=== PATIENT | male | born 1955 | race Caucasian/White ===

== ENCOUNTER → 2016-12-25 | Outpatient (CLI) | payer BC ==
[~2016-12-25] MED LIST: ACET-1256 PO; CIPR-255 PO; DIPH-437 PO; FORM1NEB INH; OXYC7.5T65 PO; PHEN-775 PO; PRVHFAIN INH
== END | disposition home or self-care (01) ==
LOC: C.LABSPEC 17:14
PROVIDERS: ATTEND Urology
DX: R31.9 Hematuria, unspecified (principal)

== ENCOUNTER 2017-01-09 07:38 | Day surgery (SDC) | payer BC, OTHER ==
[2016-12-25 10:35] VITALS: BMI 27.0
--- NOTE | 2016-12-25 11:10 | PAT Medication Instructions ---
Service Date Dec 25, 2016. Current Home Medication List Acetaminophen (Tylenol), 1 TAB PO Q8 PRN for Pain Acetaminophen/Diphenhydramine (Tylenol Pm), 1 TAB PO HS Medication Instructions For Your Scheduled Surgery - Take the following medications the morning of surgery with a sip of water: Acetaminophen (Tylenol), 1 TAB PO Q8 PRN for Pain - Take the following medications as scheduled the night before surgery: Acetaminophen (Tylenol), 1 TAB PO Q8 PRN for Pain Acetaminophen/Diphenhydramine (Tylenol Pm), 1 TAB PO HS If you have any questions please call us at [phone] or [phone] or [phone]
--- NOTE | 2016-12-25 11:51 | DIAGNOSTIC IMAGING REPORT ---
CHEST PREADMISSION(PA/LAT) CLINICAL HISTORY: Preoperative chest COMPARISON STUDY: No previous studies for comparison. FINDINGS: The heart is normal in size. There is radiographic evidence of moderately severe pulmonary emphysema.[ There is no acute parenchymal consolidation. There is no failure. There are no pleural effusions. There is mild interstitial thickening at the lung bases. IMPRESSION: Pulmonary emphysema. No acute findings. Electronically signed by: Matt Mcleod M.D. 12/25/2016 11:49 AM Dictated Date/Time: 12/25/2016 11:48 AM
[2016-12-25 11:53] LABS: BASO % 0.3 %; BASO ABS # 0.02 K/uL (0-0.2); COMPLETE YES; EOS % 0.9 %; HEMATOCRIT 54.1 % (42-52); IG% 0.1 %; LYMPH % 17.9 %; LYMPH ABS # 1.37 K/uL (1.2-3.4); MEAN CELL VOLUME 95.2 fL (80-100); MEAN CORPUSCULAR HGB CONC 33.6 g/dl (32-36); MEAN PLATELET VOLUME 10.9 fL (7.4-10.4); MONO % 8.4 %; NEUT % 72.4 %; PLATELET COUNT 199 K/uL (130-400); RED BLOOD COUNT 5.68 M/uL (4.7-6.1); WHITE BLOOD COUNT 7.65 K/uL (4.8-10.8)
[2016-12-25 13:46] LABS: BUN/CREATININE RATIO 16.2 (10-20); CALCIUM 8.9 mg/dl (8.5-10.1); CREATININE 0.93 mg/dl (0.60-1.40); POTASSIUM 4.2 mmol/L (3.5-5.1)
[~2017-01-09] VITALS: Ht 190.5 cm; Wt 99.7 kg
[~2017-01-09 07:38] MED LIST changes: +ATROPINE SULFATE 0.1 MG/ML 5ML SYR IV PRN; -CIPR-255 PO; +CIPROFLOXACIN / D5W 400 MG IV SCH; +EpHEDrine SULFATE INJ 50 MG/ML AMP IV PRN; +FENTANYL CITRATE INJ 50 MCG/1 ML 2 ML VIAL ONE; +LACTATED RINGER'S 1000ML 1,000 ML IV SCH; +LIDOCAINE HCL 2% 2 ML VIAL (20MG/ML) ONE; +MIDAZOLAM HCL 1 MG/ML 2ML VIAL ONE; +ONDANSETRON INJ 2 MG/ML 2 ML VIAL IV PRN; +ONDANSETRON INJ 2 MG/ML 2 ML VIAL ONE; -OXYC7.5T65 PO; -PHEN-775 PO; +PROPOFOL IV EMULSION 10 MG/ML 20 ML VIAL IV ONE
[2017-01-09 08:05] VITALS: BP 153/85; PULSE 68; TEMP 36.4; O2SAT 91; Ht 190.5 cm; Wt 99.7 kg
--- NOTE | 2017-01-09 08:37 | History & Physical Bridge Note ---
H&P Re-Evaluation Bridge Note: I have examined the patient, reviewed the History & Physical and in the interval since the performance of the History & Physical I have noted the following changes of clinical significance: No changes noted
[2017-01-09] MEDS ORDERED: NURSING VERBAL MED ORDER ONE (09:00)
--- NOTE | 2017-01-09 09:00 | Discharge Instructions ---
Discharge Instructions Date of Service Jan 09, 2017. Admission Reason for Admission: Bladder Tumor Discharge Discharge Diagnosis / Problem: Bladder tumor s/p TURBT, TURBN, R ureteral stent Discharge Goals Goal(s): Improve function, Improve disease control, Diagnostic testing, Therapeutic intervention Activity Recommendations Activity Limitations: as noted below Lifting Limitations: no more than 25 pounds, gradually increase as tolerated ( over 5-7 days) Exercise/Sports Limitations: rest today, gradually increase as tolerated (over 5-7 days) May Resume Sexual Activity: after two weeks Shower/Bathe: no limitations Driving or Machine Use: resume 1 day after discharge . Instructions / Follow-Up Instructions / Follow-Up Removal of beasley catheter Jan 10 (tomorrow) in [place] office at 09:30 AM. Discussion of pathology results and removal of indwelling stent in [place] office on January 22 at 10:15 AM. Discharge Diet Recommended Diet: Regular Diet (good fluid intake) Procedures Procedures Performed: Transurethral resection of bladder tumor, transurethral incision of bladder neck, fulguration prostatic bleeders, right retrograde pyelography and right ureteral stent placement, instillation of Mitomycin C Pending Studies Studies pending at discharge: yes List of pending studies: Pathology report Medical Emergencies . Who to Call and When: Medical Emergencies: If at any time you feel your situation is an emergency, please call 911 immediately. . Non-Emergent Contact Non-Emergency issues call your: Urologist Call Non-Emergent contact if: you have a fever, temperature is above 101, your pain is not controlled, your pain is worsening, your pain is unusual for you, your pain is concerning you, you have any medication questions . . "Provider Documentation" section prepared by Sanjeev Castellanos. . VTE Core Measure Inpt VTE Proph given/why not?: SCD's [place] Drug Monitoring Program Search Results: patient reviewed within database, no issues identified
[2017-01-09] MEDS ORDERED: MITOMYCIN FOR INJ 40 MG in SYRINGE 40 ML IR SCH (09:30)
[2017-01-09 09:35] VITALS: PULSE 69; O2SAT 92
[2017-01-09] MEDS ORDERED: PHENYLEPHRINE HCL INJ 10 MG/ML VIAL ONE (10:15)
[2017-01-09] MEDS ORDERED: FENTANYL CITRATE INJ 50 MCG/1 ML 2 ML VIAL ONE (10:24)
[2017-01-09] MEDS ORDERED: CONRAY 30% 150ML BOTTLE ONE (10:27)
[2017-01-09] MEDS ORDERED: BELLADONNA/OPIUM SUPP 60 MG SUPP PR ONE (10:40)
[2017-01-09] MEDS ORDERED: EpHEDrine SULFATE INJ 50 MG/ML AMP ONE (10:41)
[2017-01-09] MEDS ORDERED: CIPR-255 PO (10:52)
[2017-01-09] MEDS ORDERED: PHEN-775 PO (10:52)
[2017-01-09] MEDS ORDERED: OXYC7.5T65 PO (10:52)
[2017-01-09] MEDS ORDERED: OXYCODONE/ACETAMINOPHEN 5-325 TAB PO PRN (11:00)
[2017-01-09] MEDS ORDERED: PHENAZOPYRIDINE HCL 200 MG TAB PO PRN (11:00)
--- NOTE | 2017-01-09 11:00 | [facility] Post Operative Brief Note ---
Immediate Operative Summary Operative Date Jan 09, 2017. Pre-Operative Diagnosis Bladder tumor Post-Operative Diagnosis Bladder Tumor Procedure(s) Performed Transurethral resection of 3 cm bladder tumor, transurethral incision of bladder neck, fulguration prostatic bleeders, right retrograde pyelography and right ureteral stent placement, instillation of Mitomycin C Surgeon Dr Thony Castellanos Pot Operator Surgeon(s) None Estimated Blood Loss 20 cc Findings Narrow based tumor close to right ureteral orifice, stent placed seen fulguration at UO. Bladder neck incision performed due to need for fulguration of a tight bladder neck after passage of scope to avoid future bladder neck contracture. Good stent position on fluoroscopy. 40 mg of Mitomycin instilled in bladder in 40 cc H2O x 1 hour. Specimens Bladder tumor Bladder tumor base cold cup Drains 20 fr beasley 10 cc H2O Anesthesia GALMA Complication(s) None Disposition Recovery Room / PACU
[2017-01-09] MEDS: FENTANYL CITRATE INJ 50 MCG/1 ML 2 ML VIAL IV PRN ×2 (11:14→11:19)
--- NOTE | 2017-01-09 11:42 | Anesthesiology Progress Note ---
Anesthesia Post Op Note Date & Time Jan 09, 2017 at 11:40 Vital Signs Pain Intensity: 4 Vital Signs Past 12 Hours Date Time Temp Pulse Resp B/P (MAP) Pulse Ox O2 Delivery O2 Flow Rate FiO2 01/09/17 11:38 69 17 93 01/09/17 11:38 69 17 01/09/17 11:37 154/91 01/09/17 11:36 36.4 01/09/17 11:33 74 15 93 01/09/17 11:33 75 15 01/09/17 11:32 151/95 01/09/17 11:29 60 16 01/09/17 11:29 61 16 93 01/09/17 11:26 152/87 01/09/17 11:25 145/83 01/09/17 11:24 76 19 92 01/09/17 11:24 76 19 01/09/17 11:23 77 20 01/09/17 11:23 78 20 92 01/09/17 11:21 154/93 01/09/17 11:18 67 18 01/09/17 11:18 66 18 95 01/09/17 11:16 141/85 01/09/17 11:13 66 25 01/09/17 11:13 68 25 97 01/09/17 11:12 59 22 01/09/17 11:12 61 22 97 01/09/17 11:11 137/71 01/09/17 11:08 112/61 01/09/17 11:07 77 22 01/09/17 11:07 75 22 100 01/09/17 11:02 65 19 99 01/09/17 11:02 65 19 01/09/17 11:01 159/86 01/09/17 10:57 69 22 01/09/17 10:57 68 22 98 01/09/17 10:56 145/92 01/09/17 10:54 117/80 01/09/17 10:52 36.5 82 12 117/80 96 Mask 10 01/09/17 09:35 69 18 92 Room Air 01/09/17 08:05 36.4 68 22 153/85 (107) 91 Room Air Notes Mental Status: alert / awake / arousable, participated in evaluation Pt Amnestic to Procedure: Yes Nausea / Vomiting: adequately controlled Pain: adequately controlled Airway Patency, RR, SpO2: stable & adequate BP & HR: stable & adequate Hydration State: stable & adequate Anesthetic Complications: no major complications apparent Mr. Singh baseline SpO2 approximately 90-91% on RA. In PACU, SpO2 was 90% on RA. Patient given an incentive spirometer. Will closely monitor and ensure patient SpO2 continues to be at his baseline prior to discharging home.
[2017-01-09 11:55] VITALS: BP 148/76; PULSE 56; TEMP 36.6; O2SAT 92
[2017-01-09 12:25] VITALS: BP 153/76; PULSE 78; TEMP 36.6; O2SAT 94
--- NOTE | 2017-01-09 12:27 | DIAGNOSTIC IMAGING REPORT ---
RETROGRADE INCLUDES KUB HISTORY: 61 years Male right retrograde cystourethrogram with right-sided ureteral stent placement COMPARISON: CT abdomen and pelvis 11/15/2016 TECHNIQUE: 4 frontal spot fluoroscopic images of the right abdomen and pelvis were obtained utilizing 47.9 seconds of fluoroscopy time. FINDINGS: First image demonstrates cannulation of the right ureter with injection of contrast. Several filling defects are seen within the proximal and distal right ureter which may reflect stones or air bubbles. No significant collecting system dilation is identified. Third image demonstrates placement of a wire with subsequent placement of a ureteral stent on the last image. The proximal portion of the stent appears to be in satisfactory position and the distal portion was not imaged on this study. IMPRESSION: Status post retrograde cystourethrogram with placement of right ureteral stent. Please see procedural report for further details. The above report was generated using voice recognition software. It may contain grammatical, syntax or spelling errors. Electronically signed by: Prem Kate M.D. 01/09/2017 12:25 PM Dictated Date/Time: 01/09/2017 12:22 PM
[2017-01-09 13:05] VITALS: BP 151/71; PULSE 79; TEMP 36.7; O2SAT 92
--- NOTE | 2017-01-09 14:04 | [facility] Operative Report ---
Operative Report Operative Date Jan 09, 2017. Pre-Operative Diagnosis Bladder tumor Post-Operative Diagnosis Bladder Tumor Procedure(s) Performed Transurethral resection of 3 cm bladder tumor, transurethral incision of bladder neck, fulguration prostatic bleeders, right retrograde pyelography and right ureteral stent placement, instillation of Mitomycin C Surgeon Dr Thony Castellanos Liturgical Music Director Surgeon(s) None Estimated Blood Loss 20 cc Findings R bladder tumor in close proximity to UO - stented. Friable, tight bladder neck fulgurated and incised, good stent position after completion of case. Specimens Bladder tumor Bladder tumor base cold cup Drains 20 fr beasley 10 cc H2O Anesthesia GALMA Complication(s) None Disposition Recovery Room / PACU Indications Bladder tumor Description of Procedure Patient was properly identified and brought to the operative suite after identification of appropriate consent in the chart. General anesthesia with laryngeal mask was initiated and patient was prepped and draped in the standard fashion for this procedure. Full timeout procedure was followed. 26 Iraqi resectoscope was advanced into the bladder under direct visualization using a visual obturator. Bladder was entered and an approximately 3 cm right-sided bladder tumor obscuring the right ureteral orifice was appreciated as noted on office cystoscopy. No satellite lesions were present. Left ureteral orifice was visualized in the normal anatomic location and effluxing clear yellow urine. Using a bipolar loop the tumor was resected in its entirety. Tumor fragments were irrigated free and sent as right-sided bladder tumor for pathologic analysis. The tumor was noted to be 1-2 mm removed at its base from the right ureteral orifice although the orifice was not directly involved. A cold cup sample was taken from the deepest aspect of the tumor and sent separately as right tumor base. Bipolar button was used to cauterize the base of the tumor and surrounding mucosa. At this point some blanching of the right ureteral orifice was felt to be present and therefore decision was made to proceed with stent placement to avoid scarring and obstruction of the right ureter. Gentle retrograde was performed via a 5 Iraqi open-ended catheter demonstrating a normal collecting system without significant hydronephrosis or filling defects. This was followed by a sensor wire and a 6 Iraqi multilength right ureteral stent with redundant coil being present within the collecting system at the level of the renal pelvis and redundant coil being present within the bladder. Excellent hemostasis was obtained at the site of tumor resection with bipolar button with no residual abnormal mucosa being appreciated. At this point it is noted that the patient had an elevated bladder neck, somewhat tight to passage of the scope. Due to the manipulation of the resectoscope friability of this tissue bled to bleeding. Prostatic bleeders were cauterized using the bipolar button as necessary. Seen the small aperture of the bladder neck decision was made to also proceed with relaxing incisions at the 5 and 7 o' clock position for a transurethral incision of the bladder neck to avoid future bladder neck contracture. Hemostasis obtained at this level as necessary as well. No residual tissue was appreciated within the bladder and excellent hemostasis was noted. Bladder was drained and resectoscope was removed. 20 Iraqi Beasley catheter was placed with 10 mL of sterile water within the balloon. Mitomycin-C 40 mg in 40 mL of water was instilled into the bladder. Instillation period was abbreviated to a little over an hour seen the presence of the stent and additional resection of the level of the prostate. Belladonna and opium suppository was placed and catheter was clamped. Anesthesia was reversed and patient was transferred to the recovery room in stable condition. I attest to the content of the Intraoperative Record and any orders documented therein. Any exceptions are noted below.
== END 2017-01-09 13:43 | disposition home or self-care (01) ==
LOC: C.ACU 07:38
PROVIDERS: ATTEND Urology
DX: C67.9 Malignant neoplasm of bladder, unspecified (principal); N48.6 Induration penis plastica; N52.9 Male erectile dysfunction, unspecified; Z79.899 Other long term (current) drug therapy

== ENCOUNTER → 2018-01-07 | Outpatient (CLI) | payer BC ==
[~2018-01-07] MED LIST changes: -ATROPINE SULFATE 0.1 MG/ML 5ML SYR IV PRN; +CIPR-255 PO; -CIPROFLOXACIN / D5W 400 MG IV SCH; -EpHEDrine SULFATE INJ 50 MG/ML AMP IV PRN; -FENTANYL CITRATE INJ 50 MCG/1 ML 2 ML VIAL ONE; -LACTATED RINGER'S 1000ML 1,000 ML IV SCH; -LIDOCAINE HCL 2% 2 ML VIAL (20MG/ML) ONE; -MIDAZOLAM HCL 1 MG/ML 2ML VIAL ONE; -ONDANSETRON INJ 2 MG/ML 2 ML VIAL IV PRN; -ONDANSETRON INJ 2 MG/ML 2 ML VIAL ONE; +OPTIRAY 320 IV PRN; -PROPOFOL IV EMULSION 10 MG/ML 20 ML VIAL IV ONE
--- NOTE | 2018-01-07 11:41 | DIAGNOSTIC IMAGING REPORT ---
ABDOMEN AND PELVIS CT WITH IV CONTRAST CT DOSE: 570.38 mGy.cm HISTORY: R31.9 [id number] Malignant neoplasm of bladder TECHNIQUE: Multiaxial CT images of the abdomen and pelvis were performed following the use of intravenous contrast. A dose lowering technique was utilized adhering to the principles of ALARA. COMPARISON STUDY: Outside hospital abdomen and pelvis CT 11/15/2016. FINDINGS: Emphysema at the visualized lung bases. No pneumoperitoneum. No pneumatosis. No suspicious lytic or blastic osseous lesions. Mild diffuse bladder wall thickening. This could be due to underdistention. The previously identified lesion within the right posterior bladder is not identified on this study. This may have been resected in the interval. Clinical correlation recommended. Of note, there is near nondiagnostic evaluation of the bladder and ureters for a urothelial lesion due to the lack of delayed sequences on this study. Therefore, there is no contrast within the urinary system. However, the ureters are normal in course and caliber. No hydronephrosis. Stable 3 mm stone within the lower pole of the right kidney. Subcentimeter bilateral renal hypodense lesions are too small to characterize. There is a stable 3.7 cm hypodense lesion within the upper pole the right kidney. This does not appear to demonstrate significant enhancement and is therefore consistent with a cyst. Hepatic steatosis. No hepatic or splenic masses. The gallbladder, pancreas, and adrenal glands are unremarkable. No retroperitoneal lymphadenopathy. Normal caliber abdominal aorta. No pelvic lymphadenopathy. Colonic diverticulosis. Minimal nonspecific fat stranding adjacent to the superior aspect of the distal sigmoid colon best seen on image 339. No bowel wall thickening or obstruction. The appendix is not identified and likely surgically absent. IMPRESSION: 1. The previously identified lesion within the right posterior bladder is not identified on this study. This may have been resected in the interval. Clinical correlation recommended. 2. Of note, there is near nondiagnostic evaluation of the bladder and ureters for a urothelial lesion due to the lack of delayed sequences on this study. Therefore, there is no contrast within the urinary system. However, the ureters are normal in course and caliber. 3. Stable right-sided nephrolithiasis. No hydronephrosis. 4. No evidence for metastatic disease within the abdomen or pelvis. 5. Minimal focal fat stranding adjacent to the superior border of the distal sigmoid colon. This is nonspecific but could represent a developing acute diverticulitis. However, there is no definite bowel wall thickening identified at this time. 6. Mild diffuse bladder wall thickening. Recommend correlation with urinalysis to exclude a cystitis. 7. These findings were called/faxed to the referring physician's office following dictation. Electronically signed by: Jaden Flores M.D. 01/07/2018 11:40 AM Dictated Date/Time: 01/07/2018 11:25 AM
== END | disposition home or self-care (01) ==
LOC: C.CTS 09:58
PROVIDERS: ATTEND Urology
DX: C67.9 Malignant neoplasm of bladder, unspecified (principal); R31.9 Hematuria, unspecified